=== PATIENT | male | born 1985 | race Caucasian/White ===

== ENCOUNTER 2017-06-12 16:51 | Emergency (ER) | payer SELFPAY ==
[~2017-06-12] VITALS: Ht 177.8 cm; Wt 77.3 kg
[2017-06-12 16:59] VITALS: BP 114/73
[2017-06-12] MEDS ORDERED: ATEN50TA PO (17:08)
[2017-06-12] MEDS ORDERED: ANTIBIOTIC PO (17:08)
[2017-06-12] MEDS ORDERED: ALPR0.255 PO (17:08)
== END 2017-06-12 19:41 | disposition left against medical advice (07) ==
LOC: EMS 16:52
DX: R07.9 Chest pain, unspecified (principal); I10 Essential (primary) hypertension; F11.90 Opioid use, unspecified, uncomplicated; F15.90 Other stimulant use, unspecified, uncomplicated; F17.210 Nicotine dependence, cigarettes, uncomplicated; Z53.21 Procedure and treatment not carried out due to patient leaving prior to being seen by health care provider
CPT/HCPCS: 93005; 99281